=== PATIENT | female | born 1975 | race Caucasian/White ===

== ENCOUNTER 2020-07-29 15:43 | Outpatient (REF) | payer MEDICAID, SELFPAY ==
[2020-07-29 16:53] LABS: HCG Quantitative < 2 mIU/mL
[2020-07-30 18:42] LABS: Follicle Stimulating Hormone 83.7 mIU/mL; Lutenizing Hormone 36.7 mIU/mL
== END 2020-07-29 15:44 | disposition home or self-care (01) ==
LOC: HO.LAB 15:43
PROVIDERS: PCP Hospitalist; Visit Provider Obstetrics & Gynecology
DX: N91.2 Amenorrhea, unspecified (principal)
CPT/HCPCS: 83001; 83002; 84702

== ENCOUNTER 2020-10-01 13:41 | Emergency (ER) | payer MEDICAID, SELFPAY ==
[2020-10-01 14:05] VITALS: BP 137/92; PULSE 79; RESP 18; TEMP 37; O2SAT 99; BMI 30.9
[2020-10-01 14:50] LABS: Glucose Urine UA NEG (NEG); Leukocyte Esterase Urine TRACE (NEG); Nitrite Urine POS (NEG); PH 6.5 (5.0-8.0); Specific Gravity - Urine 1.015 (1.005-1.025); UPreg QC Valid YES; Urine Blood 2+ (NEG); Urine Ketones NEG (NEG); Urine Pregnancy NEGATIVE (NEGATIVE); Urine Protein 2+ MG/DL (NEG-TRACE)
[2020-10-01 14:54] LABS: Appearance Urine CLOUDY; Color Urine RED
[2020-10-01 14:57] LABS: Bacteria Urine TRACE /LPF; RBC Urine TNTC /HPF (0); Squamous Epithelial Cell Urine 1+ /LPF; WBC Urine 0-2 /HPF (0-4)
[2020-10-01] MEDS: 0.9 % Sodium Chloride 1,000 ML 999 ML IV (16:10)
[2020-10-01 16:18] LABS: Basophils Percent Auto 0.6 % (0-2); Eosinophils Percent Auto 0.5 % (0-4); Hematocrit 37.9 % (37-47); Hemoglobin 12.8 g/dl (12.0-16.0); Imm Gran Abs Auto 0.01 X10*3/uL (0.00-0.03); Imm Gran Pct Auto 0.2 % (0.0-0.4); Lymphocytes Absolute Auto 1.3 X10*3/uL (1.2-4.9); Lymphocytes Percent Auto 20.3 % (20-40); Mean Corpuscular HGB Conc 33.8 g/dl (31.0-35.0); Mean Corpuscular Hemoglobin 31.9 pg (27.0-33.0); Mean Corpuscular Volume 94.5 fL (80-98); Mean Platelet Volume 9.6 fL (9.4-12.3); Monocytes Absolute Auto 0.5 X10*3/uL (0.1-1.2); Monocytes Percent Auto 7.7 % (2-11); Neutrophils Absolute Auto 4.4 X10*3/uL (2.0-8.3); Neutrophils Percent Auto 70.7 % (45-73); Platelet Count 225 X10*3/uL (160-400); Red Blood Count 4.01 X10*6/uL (4.20-5.50); Red Cell Distribution Width 12.2 % (11.0-16.0); White Blood Count 6.3 X10*3/uL (4.8-10.8)
[2020-10-01 16:20] LABS: MANUAL DIFF FLAG NO
--- NOTE | 2020-10-01 16:28 | ED.GENADULT ---
HPI - General Adult General Chief complaint: Vaginal Bleeding Stated complaint: vaginal bleeding Time Seen by Provider: 10/01/20 13:59 Source: patient Mode of arrival: ambulatory Limitations: no limitations History of Present Illness HPI narrative: PATIENT PRESENTS TO ED FOR 3 DAYS OF HEAVY VAGINAL BLEEDING. PATIENT STATES CHANGING A PAD EVERY 1.5 HOURS. PATIENT STATES SHE WAS INFORMED SHE IS MENOPAUSE BY HER OBGYN DOCTOR IN FEBRUARY AFTER HER FIBROIDS WERE REMOVED. PATIENT STATES HER ESTROGEN, FSH, and LSH HORMONES WERE REVIEWED BY HER OBGYN DOCTOR TOLD HER SHE IS IN MENOPAUSE. PATIENT DENIES ANY FEVER, CHILLS. PATIENT STATES SLIGHT ABDOMINAL CRAMPING. PATIENT STATES SINCE FEBRUARY SHE HAS NOT HAD A PERIOD UNTIL THIS PAST COMING WEDNESDAY. PATIENT DENIES ANY RECENT vaginal TRAUMA. Patient denies any dysuria, hematuria, flank pain, fever, chills, nausea, or vomiting. Related Data Home Medications Medication Instructions Recorded Confirmed clonazepam 0.5 mg tablet 0.5 mg PO TID 08/05/20 ibuprofen 800 mg tablet 800 mg PO Q8H 08/05/20 medroxyprogesterone 10 mg tablet 10 mg PO DAILY 08/05/20 nicotine (polacrilex) 2 mg buccal 2 mg BUCCAL Q8H PRN 08/05/20 lozenge paroxetine HCl 40 mg tablet 40 mg PO DAILY 08/05/20 Previous Rx's Medication Instructions Recorded nitrofurantoin monohyd/m-cryst 100 mg PO BID 7 Days #14 cap 10/01/20 [Macrobid] Allergies Allergy/AdvReac Type Severity Reaction Status Date / Time No Known Allergies Allergy Verified 10/01/20 14:05 [No Known Allergies*] Review of Systems Review of Systems: Yes all other systems are reviewed and are negative Constitutional: Constitutional: Reports as per HPI and Reports no additional constitutional complaints Eyes: Eyes: Reports as per HPI and Reports no additional eye complaints ENT: Reports system reviewed and no additional complaints, except as documented and Reports as per HPI Cardiovascular: Cardiovascular: Reports as per HPI and Reports no additional cardiovascular complaints Respiratory: Respiratory: Reports as per HPI and Reports no additional respiratory complaints Gastrointestinal: Gastrointestinal: Reports as per HPI and Reports no additional gastrointestinal complaints Genitourinary: Genitourinary: Reports no additional female genitourinary complaints, Reports as per HPI and Reports abnormal vaginal bleeding Musculoskeletal: Musculoskeletal: Reports no additional musculoskeletal complaints and Reports as per HPI Neurologic: Reports system reviewed and no additional complaints, except as documented and Reports as per HPI Psychiatric: Psychiatric: Reports no additional psychiatric complaints and Reports as per HPI [facility] Past Medical History Medical History Anxiety Uterine fibroid Vagina bleeding Social History Social History Alcohol intake: never Smoking Status: Never smoker Advance Directives: No Advance Directives Information Provided: Yes Sexual orientation: Straight/Heterosexual Gender identity: female Physical Exam Vital Signs: Vital Signs: Last Vital Signs Temp 98.6 F 10/01/20 14:05 Pulse 79 10/01/20 14:05 Resp 18 10/01/20 14:05 BP 137/92 H 10/01/20 14:05 Pulse Ox 99 10/01/20 14:05 Body Mass Index 30.9 Const: General: cooperative, healthy appearing, comfortable, no acute distress, well developed, alert and awake Orientation/consciousness: patient oriented x3 HENMT: Head: Yes normal to inspection and Yes No palpable skull fracture present Eyes: General: appearance normal, both eyes and all related structures Neck: Neck: Yes normal visual inspection, Yes full ROM, Yes no lymphadenopathy, Yes no meningeal signs, Yes trachea midline, Yes supple and No tender Chest: Chest palpation & inspection: normal inspection of the chest and normal palpation of entire chest wall Resp: Effort & Inspection: normal respiratory effort and able to speak in complete sentences Cardio: Jugular venous distension: no JVD Heart sounds: S1 normal heart sound present and S2 normal heart sound present GI: Inspection: Yes normal to inspection and No abdominal wall ecchymosis Palpation (GI): Soft to palpation, not firm, nontender, no guarding and not rigid : General: No CVA tenderness and Yes no CVA tenderness Back/Spine/Pelvis: Back: no CVA tenderness, No CVA tenderness and No back tenderness Skin: General skin exam: no rashes or lesions noted Neuro: General: patient oriented x3, no meningeal signs and CN's II-XI intact bilaterally Cranial nerves: Yes CN's II-XII intact bilaterally Extrem: General: Yes normal to inspection and Yes full ROM Psych: Appearance: grossly normal, well kempt and not disheveled Course Course Course Narrative: WILL HAVE REPEAT LABS, PELVIC EXAM, MOST LIKELY REPEAT ULTRASOUND. Reevaluation(s) Reevaluation #1: Patient pelvic exam was done. Patient is not having any hemorrhagic bleeding. Patient has resident dual blood in vaginal vault and from cervix. Patient urine shows UTI, but patient does not have any urinary symptoms. Negative for any CVA flanks indicate pyelonephritis. Patient will be sent for ultrasound to make sure there is no endometrial wall thickening due to patient being menopausal. Patient informed she will have to follow up with OBGYN to rule out endometrial cancer since she was informed by her OBGYN that she has menopause and now having postmenopausal bleeding. Patient also informed this might be of perimenopause pain is also due to her young age, but she should follow-up with her OBGYN. Time: 17:20 Reevaluation #2: Case signed out to HODA swartz follow-up ultrasound. Medical Decision Making MDM Narrative Medical decision making narrative: Abnormal vaginal bleeding. UTI Lab Data Result diagrams: 10/01/20 16:11 10/01/20 16:11 Labs: Lab Results 10/01/20 10/01/20 10/01/20 Range/Units 14:33 16:11 16:11 WBC 6.3 (4.8-10.8) X10*3/uL RBC 4.01 L (4.20-5.50) X10*6/uL Hgb 12.8 (12.0-16.0) g/dl Hct 37.9 (37-47) % MCV 94.5 (80-98) fL MCH 31.9 (27.0-33.0) pg MCHC 33.8 (31.0-35.0) g/dl RDW 12.2 (11.0-16.0) % Plt Count 225 (160-400) X10*3/uL MPV 9.6 (9.4-12.3) fL Immature Gran % (Auto) 0.2 (0.0-0.4) % Neut % (Auto) 70.7 (45-73) % Lymph % (Auto) 20.3 (20-40) % Sevier % (Auto) 7.7 (2-11) % Eos % (Auto) 0.5 (0-4) % Baso % (Auto) 0.6 (0-2) % Lymph # (Auto) 1.3 (1.2-4.9) X10*3/uL [place] # (Auto) 0.5 (0.1-1.2) X10*3/uL Eos # (Auto) 0.0 (0.0-0.4) X10*3/uL Baso # (Auto) 0.0 (0.0-0.2) X10*3/uL Abs Immat Gran (auto) 0.01 (0.00-0.03) X10*3/uL Absolute Neuts (auto) 4.4 (2.0-8.3) X10*3/uL Absolute Nucleated RBC 0.000 (0.0-0.012) X10*3/uL Nucleated RBC % (auto) 0.0 (0.0-0.2) /100WBC PT 11.5 (10.8-13.0) SEC INR 1.0 (0.9-1.1) APTT 31.7 (24.1-38.0) SEC Sodium (135-145) mmol/L Potassium (3.3-5.1) mmol/l Chloride (96-108) mmol/L Carbon Dioxide (22-29) mmol/L Anion Gap (12-20) BUN (9-16) mg/dL Creatinine (0.5-1.4) mg/dL Estim Creat Clear Calc Estimated GFR Random Glucose (60-115) mg/dL Calcium (8.4-10.2) mg/dL Total Bilirubin (0.0-1.0) mg/dL AST (5-31) U/L ALT (0-31) U/L Alkaline Phosphatase (39-117) U/L Total Protein (6.5-8.0) g/dL Albumin (3.5-5.0) g/dL Urine Color RED Urine Appearance CLOUDY Urine pH 6.5 (5.0-8.0) Ur Specific [place] 1.015 (1.005-1.025) Urine Protein 2+ H (NEG-TRACE) MG/DL Urine Glucose (UA) NEG (NEG) MG/DL Urine Ketones NEG (NEG) MG/DL Urine Blood 2+ H (NEG) Urine Nitrite POS H (NEG) Ur Leukocyte Esterase TRACE H (NEG) Urine RBC TNTC H (0) /HPF Urine WBC 0-2 (0-4) /HPF Ur Squamous Epith Cells 1+ /LPF Urine Bacteria TRACE /LPF Urine Test NEGATIVE (NEGATIVE) 10/01/20 Range/Units 16:11 WBC (4.8-10.8) X10*3/uL RBC (4.20-5.50) X10*6/uL Hgb (12.0-16.0) g/dl Hct (37-47) % MCV (80-98) fL MCH (27.0-33.0) pg MCHC (31.0-35.0) g/dl RDW (11.0-16.0) % Plt Count (160-400) X10*3/uL MPV (9.4-12.3) fL Immature Gran % (Auto) (0.0-0.4) % Neut % (Auto) (45-73) % Lymph % (Auto) (20-40) % Sevier % (Auto) (2-11) % Eos % (Auto) (0-4) % Baso % (Auto) (0-2) % Lymph # (Auto) (1.2-4.9) X10*3/uL [place] # (Auto) (0.1-1.2) X10*3/uL Eos # (Auto) (0.0-0.4) X10*3/uL Baso # (Auto) (0.0-0.2) X10*3/uL Abs Immat Gran (auto) (0.00-0.03) X10*3/uL Absolute Neuts (auto) (2.0-8.3) X10*3/uL Absolute Nucleated RBC (0.0-0.012) X10*3/uL Nucleated RBC % (auto) (0.0-0.2) /100WBC PT (10.8-13.0) SEC INR (0.9-1.1) APTT (24.1-38.0) SEC Sodium 138 (135-145) mmol/L Potassium 4.3 (3.3-5.1) mmol/l Chloride 103 (96-108) mmol/L Carbon Dioxide 26 (22-29) mmol/L Anion Gap 13 (12-20) BUN 8 L (9-16) mg/dL Creatinine 0.74 (0.5-1.4) mg/dL Estim Creat Clear Calc 100.2 Estimated GFR > 60 Random Glucose 92 (60-115) mg/dL Calcium 9.1 (8.4-10.2) mg/dL Total Bilirubin 0.4 (0.0-1.0) mg/dL AST 19 (5-31) U/L ALT 16 (0-31) U/L Alkaline Phosphatase 53 (39-117) U/L Total Protein 7.4 (6.5-8.0) g/dL Albumin 4.5 (3.5-5.0) g/dL Urine Color Urine Appearance Urine pH (5.0-8.0) Ur Specific [place] (1.005-1.025) Urine Protein (NEG-TRACE) MG/DL Urine Glucose (UA) (NEG) MG/DL Urine Ketones (NEG) MG/DL Urine Blood (NEG) Urine Nitrite (NEG) Ur Leukocyte Esterase (NEG) Urine RBC (0) /HPF Urine WBC (0-4) /HPF Ur Squamous Epith Cells /LPF Urine Bacteria /LPF Urine Test (NEGATIVE) Discharge Plan Discharge Clinical Impression: Vaginal bleeding, UTI (urinary tract infection) Patient Disposition: Home, Self-Care Instructions: Dysfunctional Uterine Bleeding (ED), Urinary Tract Infection in Women (ED) Additional Instructions: Return to the ED immediately for any worsening vaginal bleeding, abdominal pain, flank pain, fever, chills, nausea, vomiting, or any other concerning symptoms. Prescriptions: New nitrofurantoin monohyd/m-cryst [Macrobid] 100 mg capsule 100 mg PO BID 7 Days Qty: 14 RF: 0 No Action clonazepam 0.5 mg tablet 0.5 mg PO TID RF: 0 nicotine (polacrilex) 2 mg lozenge 2 mg buccal Q8H PRNRF: 0 paroxetine HCl 40 mg tablet 40 mg PO DAILY RF: 0 ibuprofen 800 mg tablet 800 mg PO Q8H RF: 0 medroxyprogesterone [Provera] 10 mg tablet 10 mg PO DAILY RF: 0 Referrals: Sachin Haddad MD [Physician] - 2 days (Postmenopausal bleeding. Will need endometrial biopsy) Print Language: Monegasque
[2020-10-01 16:31] LABS: Prothrombin Time 11.5 SEC (10.8-13.0)
[2020-10-01 16:33] LABS: Partial Thromboplastin Time 31.7 SEC (24.1-38.0)
[2020-10-01 16:54] LABS: Alanine Aminotransferase 16 U/L (0-31); Albumin Level 4.5 g/dL (3.5-5.0); Alkaline Phosphatase 53 U/L (39-117); Anion Gap 13 (12-20); Aspartate Amino Transferase 19 U/L (5-31); Bilirubin Total 0.4 mg/dL (0.0-1.0); Blood Urea Nitrogen 8 mg/dL (9-16); Calcium 9.1 mg/dL (8.4-10.2); Carbon Dioxide 26 mmol/L (22-29); Chloride 103 mmol/L (96-108); Creatinine Clr Calc Pharmacy 100.2; Estimated Glomerular Filt Rate > 60; Glucose Random 92 mg/dL (60-115); Potassium 4.3 mmol/l (3.3-5.1); Sodium 138 mmol/L (135-145); Total Protein 7.4 g/dL (6.5-8.0)
--- NOTE | 2020-10-01 17:45 | US_ITS ---
EXAMINATION: US PELVIS COMPLETE US TRANSVAGINAL CLINICAL INFORMATION: Postmenopausal bleeding. COMPARISON: 05/24/2020 TECHNIQUE: Both transabdominal and endovaginal scanning was performed. FINDINGS: The uterus measures 8.4 x 4.9 x 8.2 cm, appearing larger than previously noted. There is a fibroid at the fundus on the left which also appears slightly larger than previously noted measuring 3.6 x 3.3 x 3.2 cm (previously 2.7 x 2.5 x 2.7 cm). The endometrium measures 0.8 cm and contains fluid which can be seen flowing, presumably some active bleeding. The right ovary measures 2.9 x 1.5 x 2.4 cm for a volume of 5.3 mL and appears unremarkable. The left ovary measures 2.8 x 2.3 x 2.0 cm for a volume of 6.7 mL and appears unremarkable. No free fluid is present in the pelvis. US/US pelvic complete IMPRESSION: 1. Uterine fibroid slightly larger than previously noted. 2. Normal-appearing ovaries. 3. Active bleeding seen in the endometrial canal.
--- NOTE | 2020-10-01 17:45 | US_ITS ---
EXAMINATION: US PELVIS COMPLETE US TRANSVAGINAL CLINICAL INFORMATION: Postmenopausal bleeding. COMPARISON: 05/24/2020 TECHNIQUE: Both transabdominal and endovaginal scanning was performed. FINDINGS: The uterus measures 8.4 x 4.9 x 8.2 cm, appearing larger than previously noted. There is a fibroid at the fundus on the left which also appears slightly larger than previously noted measuring 3.6 x 3.3 x 3.2 cm (previously 2.7 x 2.5 x 2.7 cm). The endometrium measures 0.8 cm and contains fluid which can be seen flowing, presumably some active bleeding. The right ovary measures 2.9 x 1.5 x 2.4 cm for a volume of 5.3 mL and appears unremarkable. The left ovary measures 2.8 x 2.3 x 2.0 cm for a volume of 6.7 mL and appears unremarkable. No free fluid is present in the pelvis. US/US transvaginal IMPRESSION: 1. Uterine fibroid slightly larger than previously noted. 2. Normal-appearing ovaries. 3. Active bleeding seen in the endometrial canal.
--- NOTE | 2020-10-01 20:22 | PC.NURSE ---
pt resting in bed, asking when she will be ready for discharge. she reports that her vaginal bleeding has slowed bleeding. provider aware pt wants results and discharge. pt has appointment with md jackson.
[2020-10-01 20:25] VITALS: BP 138/80; PULSE 79; RESP 16; O2SAT 99
== END 2020-10-01 20:58 | disposition home or self-care (01) ==
PROVIDERS: Nurse Practitioner Family; Physician Assistant; Emergency Provider Emergency Medicine; PCP Hospitalist
DX: N92.4 Excessive bleeding in the premenopausal period (principal); N39.0 Urinary tract infection, site not specified
CPT/HCPCS: 36415; 76830; 76856; 80053; 81001; 81025; 85025; 85610; 85730; 87086; 87147; 96360; 99284

== ENCOUNTER → 2020-10-02 12:21 | Outpatient (BNVA) | payer MEDICAID, SELFPAY | PROVIDERS: Visit Provider Obstetrics & Gynecology | DX: Z76.89 Persons encountering health services in other specified circumstances (principal) ==

== ENCOUNTER 2020-10-28 09:56 | Outpatient (REF) | payer MEDICAID, SELFPAY | END 2020-10-28 09:57 | disposition home or self-care (01) | LOC: HO.LAB 09:56 | PROVIDERS: Visit Provider Obstetrics & Gynecology | DX: N95.0 Postmenopausal bleeding (principal) | CPT/HCPCS: 58100; 81025; 88300; 88305 ==

== ENCOUNTER → 2020-11-13 14:21 | Outpatient (BNVA) | payer MEDICAID, SELFPAY | PROVIDERS: Visit Provider Obstetrics & Gynecology ==

== ENCOUNTER → 2021-01-17 14:39 | Outpatient (BNVA) | payer MEDICAID, SELFPAY | PROVIDERS: PCP Hospitalist; Visit Provider Advanced Practice Midwife ==

== ENCOUNTER 2021-01-28 15:22 | Outpatient (REF) | payer MEDICAID, SELFPAY ==
--- NOTE | ~2021-01-28 | MM_ITS ---
EXAMINATION: MM SCREENING DIGITAL BREAST TOMOSYNTHESIS, BILATERAL CLINICAL INFORMATION: Screening. Asymptomatic. Age 45. No known family history breast cancer. No prior breast imaging. The lifetime risk of breast cancer based on the Tyrer-Cuzick Model is 8%. COMPARISON: None (current study represents initial baseline exam). TECHNIQUE: Digital breast tomosynthesis is performed in both the craniocaudal and mediolateral oblique views along with computer-aided detection (CAD). Synthesized 2D images are generated from the tomosynthesis. FINDINGS: The breasts are heterogeneously dense, which may obscure small masses (ACR BI-RADS breast composition Category c). There is inhomogeneous parenchymal pattern bilateral. No significant mass or architectural abnormality. Scattered bilateral round and some coarse calcifications, many likely dermal. The axilla and skin contours are unremarkable. MM/MM tomosynthesis screening BI IMPRESSION: No mammographic evidence of malignancy. ASSESSMENT: BI-RADS 2: Benign RECOMMENDATION: Routine annual mammography screening. This patient's information was entered into a reminder system with a target due date for their next mammogram.
== END 2021-01-28 15:23 | disposition home or self-care (01) ==
LOC: HO.MAMMO 15:22
PROVIDERS: PCP Hospitalist; Visit Provider Obstetrics & Gynecology
DX: Z12.31 Encounter for screening mammogram for malignant neoplasm of breast (principal)
CPT/HCPCS: 77063; 77067

== ENCOUNTER 2021-02-05 09:02 | Outpatient (REF) | payer MEDICAID, SELFPAY ==
[2021-02-05 11:06] LABS: Hematocrit 37.6 % (37-47); Hemoglobin 12.6 g/dl (12.0-16.0); Mean Corpuscular HGB Conc 33.5 g/dl (31.0-35.0); Mean Corpuscular Hemoglobin 31.9 pg (27.0-33.0); Mean Corpuscular Volume 95.2 fL (80-98); Mean Platelet Volume 9.7 fL (9.4-12.3); Platelet Count 259 X10*3/uL (160-400); Red Blood Count 3.95 X10*6/uL (4.20-5.50); Red Cell Distribution Width 12.1 % (11.0-16.0); White Blood Count 4.4 X10*3/uL (4.8-10.8)
[2021-02-05 11:27] LABS: HCG Quantitative < 2 mIU/mL; Thyroid Stimulating Hormone 1.02 uIU/mL (0.32-4.0)
[2021-02-06 01:47] LABS: CT PCR NOT DETECTED (Not Detect.); NG PCR NOT DETECTED (Not Detect.)
[2021-02-08 06:07] LABS: HPV mRNA E6/E7 rflx Not Detected (Not Detected)
== END 2021-02-05 09:03 | disposition home or self-care (01) ==
LOC: HO.LAB 09:02
PROVIDERS: PCP Hospitalist; Visit Provider Obstetrics & Gynecology
DX: N95.0 Postmenopausal bleeding (principal); Z11.51 Encounter for screening for human papillomavirus (HPV)
CPT/HCPCS: 36415; 58100; 84443; 84702; 85027; 87491; 87591; 87624; 88142; 88305; 99212

== ENCOUNTER 2021-02-12 15:04 | Outpatient (REF) | payer MEDICAID, SELFPAY ==
--- NOTE | ~2021-02-12 | US_ITS ---
EXAMINATION: US PELVIS COMPLETE CLINICAL INFORMATION: Postmenopausal bleeding. COMPARISON: Ultrasound pelvis 10/01/2020. TECHNIQUE: Transabdominal and transvaginal imaging of pelvis is performed. FINDINGS: The uterus is anteverted measuring 8.6 cm in length, 5.3 cm in AP and 6.6 cm in transverse dimension. There is a moderate-sized hypoechoic lesion in the anterior upper body of uterus measuring 4.2 x 3.8 x 3.3 cm. It is consistent with a fibroid. Previously measured 3.6 x 3.3 x 3.2 cm. The endometrium is heterogeneous measuring 0.67 cm. There are a few echogenic areas within the endometrial canal likely hemorrhagic products. Patient has slight active bleeding. There are several anechoic nabothian cysts seen in the cervix. The right ovary measures 2.2 x 1.4 x 1.4 cm and volume 2.3 mL. The ovary appears unremarkable. Previously it measured 2.9 x 1.5 x 2.4 cm and volume 5.3 mL. Left ovary measures 3.8 x 1.5 x 2.6 cm and volume 7.7 mL. There is an anechoic simple cyst measuring 2.2 x 1.5 x 1.9 cm. Previously left ovary measured 2.8 x 2.3 x 2.0 cm and volume 6.7 mL. There is no free fluid in cul-de-sac. US/US transvaginal IMPRESSION: Redness uterus with slightly echogenic blood products within the endometrial canal. Moderate-sized fibroid in the left anterior upper uterus. Minimal increase in size from 3.6 cm to 4.2 cm. Simple left ovarian cyst. Several small nabothian cysts in the cervix.
--- NOTE | ~2021-02-12 | US_ITS ---
EXAMINATION: US PELVIS COMPLETE CLINICAL INFORMATION: Postmenopausal bleeding. COMPARISON: Ultrasound pelvis 10/01/2020. TECHNIQUE: Transabdominal and transvaginal imaging of pelvis is performed. FINDINGS: The uterus is anteverted measuring 8.6 cm in length, 5.3 cm in AP and 6.6 cm in transverse dimension. There is a moderate-sized hypoechoic lesion in the anterior upper body of uterus measuring 4.2 x 3.8 x 3.3 cm. It is consistent with a fibroid. Previously measured 3.6 x 3.3 x 3.2 cm. The endometrium is heterogeneous measuring 0.67 cm. There are a few echogenic areas within the endometrial canal likely hemorrhagic products. Patient has slight active bleeding. There are several anechoic nabothian cysts seen in the cervix. The right ovary measures 2.2 x 1.4 x 1.4 cm and volume 2.3 mL. The ovary appears unremarkable. Previously it measured 2.9 x 1.5 x 2.4 cm and volume 5.3 mL. Left ovary measures 3.8 x 1.5 x 2.6 cm and volume 7.7 mL. There is an anechoic simple cyst measuring 2.2 x 1.5 x 1.9 cm. Previously left ovary measured 2.8 x 2.3 x 2.0 cm and volume 6.7 mL. There is no free fluid in cul-de-sac. US/US pelvic complete IMPRESSION: Redness uterus with slightly echogenic blood products within the endometrial canal. Moderate-sized fibroid in the left anterior upper uterus. Minimal increase in size from 3.6 cm to 4.2 cm. Simple left ovarian cyst. Several small nabothian cysts in the cervix.
== END 2021-02-12 15:05 | disposition home or self-care (01) ==
LOC: HO.US 15:04
PROVIDERS: Visit Provider Obstetrics & Gynecology
DX: N95.0 Postmenopausal bleeding (principal)
CPT/HCPCS: 76830; 76856

== ENCOUNTER → 2021-02-19 16:21 | Outpatient (BNVA) | payer MEDICAID, SELFPAY | PROVIDERS: Visit Provider Obstetrics & Gynecology ==

== ENCOUNTER → 2022-01-28 14:55 | Outpatient (BNVA) | payer MEDICAID, SELFPAY | PROVIDERS: Visit Provider Advanced Practice Midwife | DX: Z01.419 Encounter for gynecological examination (general) (routine) without abnormal findings (principal) ==

== ENCOUNTER 2022-01-29 15:37 | Outpatient (REF) | payer MEDICAID, SELFPAY ==
--- NOTE | ~2022-01-29 | MM_ITS ---
EXAMINATION: MM SCREENING DIGITAL BREAST TOMOSYNTHESIS, BILATERAL CLINICAL INFORMATION: Screening. Asymptomatic. The lifetime risk of breast cancer based on the Tyrer-Cuzick Model is 8.7%. COMPARISON: Mammography: January 28, 2021 TECHNIQUE: Digital breast tomosynthesis is performed in both the craniocaudal and mediolateral oblique views along with computer-aided detection (CAD). Synthesized 2D images are generated from the tomosynthesis. FINDINGS: The breasts are heterogeneously dense, which may obscure small masses (ACR BI-RADS breast composition Category c). There are no significant masses, abnormal calcifications, or other abnormalities. MM/MM tomosynthesis screening BI IMPRESSION: There are no significant changes from prior study. ASSESSMENT: BI-RADS 1: Negative RECOMMENDATION: Routine annual mammography screening. This patient's information was entered into a reminder system with a target due date for their next mammogram.
== END 2022-01-29 15:38 | disposition home or self-care (01) ==
LOC: HO.MAMMO 15:37
PROVIDERS: Visit Provider Nurse Practitioner Family
DX: Z12.31 Encounter for screening mammogram for malignant neoplasm of breast (principal)
CPT/HCPCS: 77063; 77067

== ENCOUNTER 2022-02-25 15:36 | Outpatient (REF) | payer MEDICAID, SELFPAY ==
--- NOTE | ~2022-02-25 | US_ITS ---
EXAMINATION: US PELVIS CLINICAL INFORMATION: Benign neoplasm of connective and other soft tissues. LMP 4-5 months ago. COMPARISON: Pelvic ultrasound dated from 02/12/2021. TECHNIQUE: Ultrasound of the pelvis is performed using both transabdominal and transvaginal transducers along with Doppler. Transvaginal imaging is performed due to inadequate visualization transabdominally. FINDINGS: The uterus is anteverted and measures 9 x 4.1 x 7.1 cm. A 3.8 x 3.3 x 3.5 cm left uterine fibroid is redemonstrated (previously 4.2 x 3.8 x 3.3 cm). The endometrium measures 0.7 cm in thickness. The ovaries are normal in morphology with preserved flow of the moment of this examination. The right ovary measures 2.6 x 1.6 x 1.8 cm (4 mL), and the left ovary measures 1.6 x 1.3 x 1.4 cm (1.5 mL). There is a dominant follicle in the right ovary for which no imaging follow-up is recommended. No free fluid. Small nabothian cysts are overlying the cervix. US/US pelvic and transvaginal IMPRESSION: 1. The endometrium measures up to 0.5 cm in thickness, which is expected in the secretory phase of a premenopausal patient. If the patient is postmenopausal, this is abnormal and further evaluation by [employer] is recommended to rule out neoplasia. 2. Redemonstration of a 3.8 cm uterine fibroid.
== END 2022-02-25 15:37 | disposition home or self-care (01) ==
LOC: HO.US 15:36
PROVIDERS: Visit Provider Advanced Practice Midwife
DX: D21.9 Benign neoplasm of connective and other soft tissue, unspecified (principal)
CPT/HCPCS: 76830; 76856

== ENCOUNTER 2022-03-12 15:29 | Outpatient (REF) | payer MEDICAID, SELFPAY ==
[2022-03-12 16:51] LABS: TSH reflex Free T4 1.11 uIU/mL (0.32-4.0)
== END 2022-03-12 15:30 | disposition home or self-care (01) ==
LOC: HO.LAB 15:29
PROVIDERS: PCP Nurse Practitioner Family; Visit Provider Advanced Practice Midwife
DX: R23.2 Flushing (principal); N93.9 Abnormal uterine and vaginal bleeding, unspecified
CPT/HCPCS: 36415; 83001; 84443

== ENCOUNTER 2022-03-27 13:29 | Outpatient (REF) | payer MEDICAID, SELFPAY | END 2022-03-27 13:30 | disposition home or self-care (01) | LOC: HO.LAB 13:29 | PROVIDERS: PCP Nurse Practitioner Family; Visit Provider Advanced Practice Midwife | DX: N95.0 Postmenopausal bleeding (principal) | CPT/HCPCS: 58100; 88305 ==

== ENCOUNTER → 2022-04-15 15:34 | Outpatient (BNVA) | payer MEDICAID, SELFPAY | PROVIDERS: PCP Nurse Practitioner Family; Visit Provider Advanced Practice Midwife | DX: Z71.2 Person consulting for explanation of examination or test findings (principal); N95.0 Postmenopausal bleeding; D21.9 Benign neoplasm of connective and other soft tissue, unspecified | CPT/HCPCS: 99212 ==

== ENCOUNTER 2023-11-23 19:56 | Emergency (ER) | payer OTHER, SELFPAY ==
--- NOTE | 2023-11-23 20:01 | ED.GENADULT ---
HPI - General Adult General Chief complaint: Allergic Reaction Stated complaint: allergic rash Time Seen by Provider: 11/23/23 20:16 Source: patient Mode of arrival: ambulatory Limitations: no limitations History of Present Illness HPI narrative: Patient is a 48-year-old female presenting to the emergency department with complaint of a pruritic rash which began earlier today around 10am. Patient states rash began on her arms and progressed to trunk and legs, is spreading towards groin area. 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 She took 25mg of Benadryl around 5pm. Denies prior history of anaphylaxis. Denies any swelling to lips or tongue, denies any shortness of breath or difficulty breathing, denies any difficulty swallowing. Denies any abdominal pain, nausea or vomiting. Denies any new foods, soaps, medications, etc. MD complaint: Rash Onset (ago): hour(s) Quality: other (Pruritic) Treatments prior to arrival: other Related Data Home Medications Medication Instructions Recorded Confirmed clonazepam 0.5 mg tablet 0.5 mg PO TID 08/05/20 11/13/20 nicotine (polacrilex) 2 mg buccal 2 mg buccal Q8H PRN 08/05/20 10/02/20 lozenge paroxetine HCl 40 mg tablet 40 mg PO DAILY 08/05/20 11/13/20 Previous Rx's Medication Instructions Recorded prednisone 20 mg tablet 40 mg (2 x 20 mg) PO DAILY #8 tabs 11/23/23 Allergies Allergy/AdvReac Type Severity Reaction Status Date / Time No Known Allergies Allergy Verified 11/23/23 20:03 [No Known Allergies*] Review of Systems Review of Systems: As per HPI. Yes all other systems are reviewed and are negative Constitutional: Constitutional: Reports as per HPI [facility] Past Medical History Medical History (Updated 11/23/23 @ 20:07 by Susan Vargas NP) Abnormal uterine bleeding (AUB) History of abnormal cervical Pap smear Postmenopausal bleeding Anxiety Uterine fibroid Surgical History History of endometrial ablation Status post hysteroscopic polypectomy H/O myomectomy Social History Social History Alcohol intake: never Advance Directives: No Advance Directives Information Provided: No Sexual orientation: Straight/Heterosexual Gender identity: Female Physical Exam ED Vital Signs: Vital Signs - 24 hr 11/23/23 20:04 Temperature 98.0 F Pulse Rate 94 Respiratory Rate 14 Blood Pressure 120/95 H Pulse Oximetry 96 Oxygen Delivery Method Room Air BMI result Body Mass Index 21.9 Vital signs have been reviewed and appear to be correct. Blood pressure normal. Heart rate normal. Respiratory rate normal. Temperature normal. Oxygen saturation normal. Const General: cooperative, healthy appearing and no acute distress Orientation/consciousness: oriented to person, oriented to place, oriented to time and patient oriented x3 Limitations: no limitations [facility] Head: Yes normocephalic and Yes atraumatic Ears: external ears normal General nose exam: Normal external nose present Face and sinus: Yes face symmetric Mouth: Normal oral and palatal mucosa present, lip normal, tongue normal, oropharynx normal and moist mucous membranes Throat: Yes posterior oropharynx normal, Yes tonsils normal, Yes uvula midline and No uvular edema Eyes Pupils: Equal, round and reactive pupils present Neck Neck: Yes normal visual inspection and Yes supple Resp Effort & Inspection: normal respiratory effort and able to speak in complete sentences Auscultation: clear to auscultation bilaterally Cardio Rate: regular rate Rhythm: regular rhythm Heart sounds: S1 normal heart sound present and S2 normal heart sound present GI Palpation (GI): Soft to palpation and nontender Auscultation: normoactive bowel sounds General: Yes no CVA tenderness Back/Spine/Pelvis Back: no CVA tenderness Skin General skin exam: elasticity normal and turgor normal Rashes: rashes noted urticaria diffuse color blanching and red and distribution (diffuse) Neuro General: oriented to person, oriented to place, oriented to time, patient oriented x3, moves all extremities, no focal motor deficits and CN's II-XI intact bilaterally Cranial nerves: Yes Equal, round and reactive pupils present Cognition (Neuro): normal cognition Extrem General: Yes full ROM, Yes no pedal edema and Yes no calf tenderness Psych Mental Status: mental status grossly normal Affect: normal affect Thought process: Normal thought process present Medications Administered Discontinued Medications Generic Name Dose Route Start Last Admin Trade Name Freq PRN Reason Stop Dose Admin Famotidine 20 mg 11/23/23 20:07 11/23/23 20:10 Famotidine 20 Mg Tablet PO 11/23/23 20:08 20 mg ONCE ONE Administration Prednisone 40 mg 11/23/23 20:07 11/23/23 20:10 Prednisone 20 Mg Tablet PO 11/23/23 20:08 40 mg ONCE ONE Administration Medical Decision Making Medical Decision Making [facility] Narrative: Patient is a 48-year-old female presenting to the emergency department with complaint of a pruritic rash which began earlier today around 10am. On exam patient is awake, A+Ox3, VS WNL, afebrile, normal neurological exam without focal deficits, physical exam findings as above. Given reported symptoms and physical exam findings, initial differential includes allergic reaction, contact dermatitis, allergic dermatitis. Patient medicated with prednisone in the emergency department. Given that patient's rash developed at 10:00 a.m. and she does not have any airway involvement, feel she is stable for discharge home. Advised patient to begin using a second-generation antihistamine such as loratadine or cetirizine as well as famotidine. Strict return precautions discussed. Instructed patient to follow-up primary care provider. Patient verbalized understanding of and agreement with plan. Differential Diagnosis Differential Diagnoses: The differential diagnosis associated with the presentation includes As per MDM. External Record Review External record reviewed: Inpatient record, Office record and Outpatient record Prescription Management I considered prescription management with: Other Discharge Plan Discharge Clinical Impression: Rash and nonspecific skin eruption Patient Disposition: Home, Self-Care Instructions: Contact Dermatitis (DC), Acute Rash (ED) Additional Instructions: You were evaluated in the emergency room today for a rash. You are being prescribed a course of prednisone which is a steroid to decrease inflammation. You should also begin taking over the counter loratadine or cetirizine as well as over the counter famotidine (Pepcid). Avoid extremes in temperatures when showering and use lukewarm water. Please follow up with your primary care provider within two days. Return to the emergency department if you develop difficulty breathing, shortness of breath, difficulty swallowing, swelling to lips or tongue, chest pain, abdominal pain, vomiting or any other concerning symptoms. Prescriptions: New prednisone 20 mg tablet 40 mg PO DAILY Qty: 8 0RF No Action clonazepam 0.5 mg tablet 0.5 mg PO TID nicotine (polacrilex) 2 mg lozenge 2 mg buccal Q8H PRN paroxetine HCl 40 mg tablet 40 mg PO DAILY Stand Alone Forms: Work/School Release Interventions: ED Discharge Assessment Last Done: 11/23/23 20:29
[2023-11-23 20:04] VITALS: BP 120/95; PULSE 94; RESP 14; TEMP 36.7; O2SAT 96; BMI 21.9
[2023-11-23] MEDS: Famotidine 20 MG TABLET PO (20:10)
[2023-11-23] MEDS: predniSONE 20 MG TABLET 40 MG PO (20:10)
== END 2023-11-23 20:33 | disposition home or self-care (01) ==
LOC: HO.ED 22:21
PROVIDERS: Emergency Provider Emergency Medicine Emergency Medical Services; PCP Nurse Practitioner Family
DX: L50.0 Allergic urticaria (principal)
CPT/HCPCS: 99282; 99283